=== PATIENT | female | born 2000 | race Caucasian/White ===

== ENCOUNTER 2022-01-05 00:10 | Emergency (ER) | payer OTHER, SELFPAY ==
[2022-01-05 00:12] VITALS: BP 159/123; PULSE 116; RESP 22; TEMP 36.1; O2SAT 100
[2022-01-05] MEDS: LORazepam INJ (*CRX) 2 MG/ML VIAL 1 MG IV PUSH (01:24)
--- NOTE | 2022-01-05 01:35 | PC.NURSE ---
per EDP rhina no sitter/green scrubs/room clearing needed at this time.
[2022-01-05 01:43] LABS: Basophils Percent Auto 0.5 % (0.2-1.2); Eosinophils Percent Auto 0.3 % (0-4.4); Hematocrit 41.2 % (37.0-47.0); Hemoglobin 14.1 g/dL (12.0-15.0); Immature Granulocyte Absolute 0.04 K/mm3 (0.00-0.031); Immature Granulocyte Percent A 0.5 % (0-0.5); Lymphocytes Absolute Auto 1.83 K/mm3 (0.9-3.2); Lymphocytes Percent Auto 23.7 % (18.3-44.2); Mean Corpuscular HGB Conc 34.2 g/dl (32-36); Mean Corpuscular Hemoglobin 29.6 pg (26-34); Mean Corpuscular Volume 86.4 fl (80-100); Mean Platelet Volume 9.5 fl (7.4-10.4); Monocytes Absolute Auto 0.6 K/mm3 (0.1-0.6); Monocytes Percent Auto 7.5 % (2.6-8.5); Neutrophils Absolute Auto 5.2 K/mm3 (1.3-6.7); Neutrophils Percent Auto 67.5 % (45.5-73.1); Platelet Count Result 241 k/mm3 (150-375); Red Blood Count 4.77 M/mm3 (4.2-5.4); Red Cell Distribution Width 11.9 % (11.5-14.5); White Blood Count 7.7 K/mm3 (4.5-10.0)
[2022-01-05 01:57] LABS: Amphetamine Screen Urine Positive (Negative); Barbiturate Screen Urine Negative (Negative); Benzodiazepines Screen Urine Negative (Negative); Cannabinoid Screen Urine Positive (Negative); Cocaine Screen Urine Negative (Negative); Methadone Screen Urine Negative (Negative); Opiate Screen Urine Negative (Negative); Phencyclidine Screen Urine Negative (Negative)
[2022-01-05 02:01] LABS: Alanine Aminotransferase 24 U/L (4-35); Albumin Level 4.5 g/dL (3.5-5.1); Alkaline Phosphatase 65 U/L (38-126); Anion Gap 9 mmol/L (8-16); Aspartate Amino Transferase 25 U/L (14-36); Bilirubin,Total 0.3 mg/dL (0.2-1.3); Blood Urea Nitrogen 12 mg/dL (7-17); Calcium 9.7 mg/dL (8.4-10.2); Carbon Dioxide 23 mmol/L (22-30); Chloride 104 mmol/L (98-107); Estimated Glomerular Filt Rate > 60; Glucose 154 mg/dL (65-110); Potassium 3.2 mmol/L (3.4-5.0); Sodium 136 mmol/L (137-145)
[2022-01-05 02:01] LABS: Ethanol < 10 mg/dL (<10)
[2022-01-05 02:05] LABS: Add Urine Microscopic? YES; Appearance Urine Clear (Clear); Bilirubin Urine Negative (Negative); Blood Urine 2+ (Negative); Color Urine Yellow (Yellow); Glucose Urine UA Negative (Negative); Ketones Urine Negative (Negative); Leukocyte Esterase Ur Negative LEU/UL (Negative); Mucus Urine Rare /lpf; Nitrate Urine Negative (Negative); Protein Urine Negative (Negative); RBC Urine 0-2 /hpf (0-2); Specific Grav Ur 1.014 (1.001-1.035); Urobilinogen Urine Negative mg/dL (<2.0); WBC Urine 0-3 /hpf
[2022-01-05 02:22] LABS: SARS-CoV-2 RNA PCR Negative
--- NOTE | 2022-01-05 03:05 | ED.PSYCH ---
HPI - Psych General Chief Complaint: Psychiatric Symptoms <Srinath Colon MD - Last Filed: 01/05/22 22:55> Stated Complaint: mental health crisis <Srinath Colon MD - Last Filed: 01/05/22 22:55> Time Seen by Provider: 01/05/22 00:40 <Srinath Colon MD - Last Filed: 01/05/22 22:55> History of Present Illness HPI Narrative: Patient is a 21-year-old female who presents ER with concerns for her mental health. Patient was accompanied by a friend. Family is aware that she is here but she would not allow her parents come in with her. According to the friend the patient has been in her current state for the last 3 days. She has been sleeping no more than 3 hours at night. Patient has had very pressured speech with circular thought. The majority of her thought revolves around the fact that she has depression anxiety as well as ADHD that is worsened by the fact that she is in graduate school for psychology. 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 Patient is going off on tangents about macro psychology. She reports that she has been trying to self diagnose and also using her counselor and psychologist to help with her mental health. <Srinath Colon MD - Last Filed: 01/05/22 22:55> Related Data Home Medications: Home Medications Medication Instructions Recorded Confirmed adapalene-benzoyl peroxide TOPICAL 01/05/22 amitriptyline 01/05/22 dextroamphetamine-amphetamine PO 01/05/22 01/05/22 [Adderall XR] dextroamphetamine-amphetamine PO 01/05/22 [Mydayis] sertraline mg 01/05/22 <Srinath Colon MD - Last Filed: 01/05/22 22:55> Allergies/Adverse Reactions: Allergies Allergy/AdvReac Type Severity Reaction Status Date / Time No Known Allergies Allergy Mild Verified 01/05/22 00:24 <Srinath Colon MD - Last Filed: 01/05/22 22:55> Review of Systems Review of Systems: All systems reviewed & are unremarkable except as noted in HPI and below <Srinath Colon MD - Last Filed: 01/05/22 22:55> Constitutional: Constitutional: Denies chills, Denies fever(s) and Denies weakness <Srinath Colon MD - Last Filed: 01/05/22 22:55> Comments: Insomnia <Srinath Colon MD - Last Filed: 01/05/22 22:55> ENT: Denies nasal congestion and Denies sore throat <Srinath Colon MD - Last Filed: 01/05/22 22:55> Cardiovascular: Cardiovascular: Denies chest pain, Denies rapid heart rate and Denies radiating jaw, neck or arm pain <Srinath Colon MD - Last Filed: 01/05/22 22:55> Respiratory: Respiratory: Denies cough and Denies dyspnea <Srinath Colon MD - Last Filed: 01/05/22 22:55> Gastrointestinal: Gastrointestinal: Denies abdominal pain, Denies nausea and Denies vomiting <Srinath Colon MD - Last Filed: 01/05/22 22:55> Psychiatric: Psychiatric: Reports anxiety, Reports depression, Denies homicidal ideation and Denies suicidal ideation <Srinath Colon MD - Last Filed: 01/05/22 22:55> Comments: Denies auditory/visual hallucinations. <Srinath Colon MD - Last Filed: 01/05/22 22:55> PMFSH Past Medical History Medical History: Medical History (Updated 01/05/22 @ 22:49 by Srinath Colon MD) ADHD Anxiety Depression <Srinath Colon MD - Last Filed: 01/05/22 22:55> Surgical History Surgical History: Surgical History (Updated 01/05/22 @ 04:06 by Srinath Colon MD) No pertinent past surgical history <Srinath Colon MD - Last Filed: 01/05/22 22:55> Social History Social History: Social History Substance use type: marijuana <Srinath Colon MD - Last Filed: 01/05/22 22:55> Exam Narrative: GENERAL: Anxious-appearing, well-nourished, and in no acute distress. HEAD: Normocephalic, atraumatic. EYES: PERRL and EOMI. ENT: Mucous membranes moist. CHEST: Clear to auscultation. No respiratory
--- NOTE | 2022-01-05 04:53 | PC.NURSE ---
Brittany Bolanos Banner. [facility], called...patient is OUT OF NETWORK...informed RN.
--- NOTE | 2022-01-05 04:58 | PC.NURSE ---
spoke with gerson at [facility]. gerson requesting paperwork be faxed, paperwork faxed at this time.
--- NOTE | 2022-01-05 04:59 | PC.NURSE ---
[facility] is at capacity and does not have ability to accept the patient at this time. We can try back after 11am to see if there are any discharges.
--- NOTE | 2022-01-05 07:04 | PC.NURSE ---
spoke with gerson from [facility], they are unable to take the patient.
--- NOTE | 2022-01-05 10:54 | PC.NURSE ---
Crisis Katie called and told she had sent a referral to [facility] and wants us to fax the chart. When this nurse called [facility] they state they did not recieve the referral and only have a couple beds with a wait list.
[2022-01-05 11:10] VITALS: BP 132/68; PULSE 78; RESP 18; O2SAT 99
--- NOTE | 2022-01-05 12:27 | PC.NURSE ---
contacted [facility] to recheck bed status. no beds open at this time
--- NOTE | 2022-01-05 14:25 | PC.NURSE ---
requested paperwork faxed to [facility] for 2nd time
--- NOTE | 2022-01-05 15:01 | PC.NURSE ---
patient states that she is not having thoughts of harming self or others and that now that she has slept her thoughts are clear and she feels she can just go home. called [facility] and requested patient be reevaluated but they declined stating they will do so after 24 hours
[2022-01-05 15:30] VITALS: BP 136/90; PULSE 68; RESP 20; O2SAT 99
--- NOTE | 2022-01-05 18:05 | PC.NURSE ---
[facility] called to decline patient due to lack of admission criteria
[2022-01-05 18:55] VITALS: BP 132/70; PULSE 78; RESP 18; O2SAT 99
--- NOTE | 2022-01-05 21:17 | PC.NURSE ---
marleen artificial marble worker here to see patient
[2022-01-05 23:02] VITALS: BP 138/72; PULSE 78; RESP 18; O2SAT 99
== END 2022-01-05 23:03 | disposition home or self-care (01) ==
PROVIDERS: Emergency Medicine; Emergency Provider Emergency Medicine; PCP Internal Medicine
DX: F41.9 Anxiety disorder, unspecified (principal); F23 Brief psychotic disorder; Z20.822 Contact with and (suspected) exposure to COVID-19; F90.9 Attention-deficit hyperactivity disorder, unspecified type; F32.A Depression, unspecified
CPT/HCPCS: 36415; 80053; 80307; 81001; 81025; 84443; 85025; 96374; 99284; A9270; C9803; J2060; U0003; U0005

== ENCOUNTER → 2023-06-26 12:44 | Outpatient (CLI) | payer OTHER, SELFPAY ==
--- NOTE | ~2023-06-26 | XR_ITS ---
Lumbosacral Spine: AP, oblique, and lateral views Clinical History: Pain Findings: The normal lordotic curve is maintained. The vertebral bodies and posterior elements are i ntact. The intervertebral disc spaces are preserved. The sacroiliac joints are normally outlined. Impression: No significant abnormality. Reviewed, dictated and finalized at [facility]. Impression: No significant abnormality.
== END ==
PROVIDERS: Visit Provider Internal Medicine
DX: M54.16 Radiculopathy, lumbar region (principal)
CPT/HCPCS: 72110

== ENCOUNTER → 2023-07-10 10:16 | Outpatient (CLI) | payer OTHER, SELFPAY ==
--- NOTE | ~2023-07-10 | MR_ITS ---
EXAMINATION: MR lumbar spine wo con DATE: 07/10/2023 10:53 INDICATION: Lumbar radiculopathy. TECHNIQUE: Magnetic resonance imaging (MRI) of the lumbar spine was performed without intravenous con trast. Sequences included sagittal T2-weighted FSE, sagittal T2-weighted FS FSE, sagittal T1-weighted FSE, and axial T2-weighted FSE. COMPARISON: Lumbar spine radiographs 06/26/2023 FINDINGS: There is 6 degrees dextrocurvature of thoracolumbar spine. There is mild chronic anterior w edging of T12 vertebral body. There is moderately decreased disc height at L5-S1. The following disc levels are specifically discussed: L1-L2: The disc does not extend beyond the endplate margin. There is mild bilateral facet joint osteo arthritis. There is no neural foraminal stenosis. There is no central canal stenosis. L2-L3: The disc does not extend beyond the endplate margin. There is mild bilateral facet joint osteo arthritis. There is no neural foraminal stenosis. There is no central canal stenosis. L3-L4: There is a central extrusion. There is mild bilateral facet joint osteoarthritis. There is mil d bilateral neural foraminal stenosis. There is mild central canal stenosis. L4-L5: The disc is bulging with superimposed central extrusion. There is mild bilateral facet joint o steoarthritis. There is mild bilateral neural foraminal stenosis. There is mild central canal stenosi s. L5-S1: The disc is bulging with superimposed large central and right subarticular zone extrusion. The re is mild bilateral facet joint osteoarthritis. There is moderate bilateral neural foraminal stenosi s. There is severe central canal stenosis. IMPRESSION: 1. Large extrusion at L5-S1 with severe central canal stenosis. Reviewed, dictated and finalized at [facility].
== END ==
PROVIDERS: Visit Provider Internal Medicine
DX: M54.16 Radiculopathy, lumbar region (principal); M51.27 Other intervertebral disc displacement, lumbosacral region
CPT/HCPCS: 72148